=== PATIENT | female | born 1950 | race Caucasian/White ===

== ENCOUNTER 2023-09-23 04:39 | Emergency (ER) | payer MEDICARE, SELFPAY ==
[2023-09-23 05:06] VITALS: BP 119/80
--- NOTE | 2023-09-23 07:44 | ED.GENMED ---
History of Present Illness
General
Chief Complaint: Musculo-Skeletal Complaint
Source: patient
Exam Limitations: none
Time Seen by Provider: 09/23/23 06:42
Nursing documentation reviewed up to this point in time: agreed with
Travel History
Have you had any contact with someone who has COVID-19?: No
Do you have any symptoms of coronavirus? Fever > 100 degrees, chills, cough, shortness of breath, sore throat, loss of taste or smell, muscle aches, or headache?: No
History of Present Illness
History of Present Illness:
Patient presents ED secondary to persistent right foot pain, after she rolled her foot on a ball, while playing with her dog last night. Patient has taken Advil overnight, with minimal relief in symptoms. Denies any other injuries from the
incident.
Review of Systems
Review of Systems
Allergies reviewed?: Yes
All Other Systems: ROS reviewed and negative except as documented in HPI and ROS
Constitutional: Reports no symptoms; Denies fever
Musculoskeletal: Reports other (foot pain)
Skin: Reports no symptoms
Neurological: Reports no symptoms
Phy Exam
Physical Exam
Physical Exam:
Physical Exam
General: mild painful distress, not acutely ill. afebrile
Head: nc/at. eomi
Neck: supple. normal range of motion.
Neuro: alert and oriented. no focal neurological deficits
Skin: no rash
Psychiatric: well kept. interactive and cooperative
Extremities: right foot - mild ecchymosis w tenderness noted over lateral aspect, below and distal to lateral malleolus
Course
Orders/Labs/Results
Orders:
Orders
09/23/23 05:17
Foot, Right 3 View [CR Foot - Right Min 3 Views] Urgent
Comment:
Reason For Exam: twist inj
09/23/23 07:51
boot [Ortho Boot Right- Treatment] ONCE
Short or tall?: Short
Vital Signs
Initial and Last Documented VS:
Initial Vital Signs
Temp Pulse Resp BP Pulse Ox
98.1 F 72 16 119/80 96
09/23/23 05:06 09/23/23 05:06 09/23/23 05:06 09/23/23 05:06 09/23/23 05:06
Last Documented Vital Signs
Temp Pulse Resp BP Pulse Ox
98.1 F 72 16 119/80 96
09/23/23 05:06 09/23/23 05:06 09/23/23 05:06 09/23/23 05:06 09/23/23 05:06
MDM/Problems Addressed
MDM/Problems Addressed:
X-ray: No acute findings, preliminary reading by myself.
History and exam consistent with likely foot strain, less likely fracture. Patient will be placed on short orthopedic boot with recommendation to follow-up with PCP for reevaluation.
*Critical Care Note
Total Time (30-74mins, 75-104mins- exclusive of procedures): Not Applicable
ED Attending Note
-
Portions of this chart may have been created with voice recognition software.� Occasional wrong word or��sound alike� substitutions may have occurred due to the inherent limitations of voice recognition software.
Discharge Plan
Departure
Patient Disposition: Home (Routine Discharge)
Date of Disposition: 09/23/23
Time of Disposition: 07:52
Patient with high blood pressure during this ER visit?: No
Condition: Good
Discharge Problem:
Foot sprain
Instructions: Sprain (DC), Walking Boot
Referrals:
Nithin Garner MD [Active] -
Mary Shaw MD [Family Provider] -
Activity Restrictions/Additional Instructions:
As discussed, please follow-up with your primary care physician and/or referred orthopedic surgeon for reevaluation. In ED, x-ray did not reveal any acute findings. Please continue to use provided orthopedic boot for comfort.
Interventions
Interventions:
*Risk Screen - Suicide Last Done: 09/23/23 05:06
*General Assessment Last Done: 09/23/23 05:06
*Neglect/Abuse Screening Last Done: 09/23/23 05:06
ED- Fall Risk Assessment Last Done: 09/23/23 05:06
*ED COVID-19 Vaccine History Last Done: 09/23/23 05:06
*Nursing Disposition Last Done: 09/23/23 08:09
ED-Musculoskeletal Assessment Last Done: 09/23/23 07:45
Discharge Date and Time
Discharge Date/Time: 09/23/23 08:09
Print Language: ESTONIAN
== END 2023-09-23 08:09 | disposition home or self-care (01) ==
LOC: EMR 04:39
PROVIDERS: EMERGENCY PHYSICIAN Emergency Medicine; FAMILY PHYSICIAN Internal Medicine
DX: S93.601A Unspecified sprain of right foot, initial encounter (principal); X50.1XXA Overexertion from prolonged static or awkward postures, initial encounter
CPT/HCPCS: 99283; 73630

== ENCOUNTER → 2024-07-30 13:22 | Outpatient (REF) | payer MEDICARE, SELFPAY ==
[2024-07-30 14:29] LABS: % Basophils 1.2 % (0-2); % Immature Granulocytes 0.2 % (0-0.5); % Monocytes 11.3 % (1.7-9.3); % Neutrophils 47.3 % (42.2-75.2); Absolute Basophils 0.1 10^3/uL (0-0.2); Absolute Eosinophils 0.2 10^3/uL (0-0.7); Absolute Lymphocytes 1.5 10^3/uL (1.2-3.4); Absolute Monocytes 0.5 10^3/uL (0.1-0.6); Hematocrit 39.4 % (37.0-47.0); Hemoglobin 13.7 g/dL (12.0-16.0); Mean Corp Hgb Conc. 34.8 g/dL (33.0-37.0); Mean Corpuscular Hgb 32.9 pg (27.0-31.0); Mean Corpuscular Volume 94.7 fL (81.0-99.0); Mean Platelet Volume 9.9 fL (7.4-10.4); Nucleated Red Blood Cells % 0 %; Platelet Count 251 10^3/uL (130-400); Red Blood Cell Count 4.16 10^6/uL (4.20-5.40); Red Cell Dist. Width 11.8 % (11.5-14.5); White Blood Cell Count 4.2 10^3/uL (4.8-10.8)
[2024-07-30 14:46] LABS: Blood Urea Nitrogen 18 mg/dl (7-17); Carbon Dioxide 33 mmol/L (22-30); Chloride 94 mmol/L (98-107); Glucose 84 mg/dl (70-99); Potassium 4.4 mmol/L (3.5-5.1); Sodium 130 mmol/L (135-145); eGFR > 60.00
== END ==
LOC: RCS 13:22
PROVIDERS: ATTENDING PHYSICIAN Orthopaedic Surgery; FAMILY PHYSICIAN Internal Medicine
DX: Z01.818 Encounter for other preprocedural examination (principal)
CPT/HCPCS: 36415; 80048; 85025; 93005

== ENCOUNTER 2024-09-18 09:02 | Emergency (ER) | payer MEDICARE, SELFPAY ==
--- NOTE | 2024-09-18 09:21 | ED.GENMED ---
History of Present Illness
General
Chief Complaint: Chest Pain
Source: patient
Exam Limitations: none
Time Seen by Provider: 09/18/24 09:21
History of Present Illness
History of Present Illness:
Patient started with nontraumatic localized left anterior lateral chest pain under her left breast last evening. Persisted throughout the night and into today. Worse with breathing twisting turning coughing. History of costochondritis that feels
similar. She did however have a recent hip replacement. No unusual new leg pain no fever no cough.
Past History
Past History
ED Past Medical History: Asthma, Seizures and Other (Orion's thyroiditis)
ED Past Surgical History: Orthopedic
Review of Systems
Review of Systems
All Other Systems: Not applicable
Constitutional: Denies fever or chills
Respiratory: Denies cough
Cardiac: Denies syncope
ABD/GI: Reports no symptoms
Phy Exam
Physical Exam
Physical Exam:
GENERAL: Alert and oriented in no apparent distress
EYE: Orbits normal.
NECK: Supple, no significant adenopathy.
ENT: Pharynx without erythema
CARDIAC: Regular rate and rhythm without any obvious murmurs. No chest wall tenderness
LUNGS: Clear breath sounds,normal
ABDOMEN: Soft, without focal tenderness or distention
NEUROLOGICAL: Alert and oriented , grossly non-focal
SKIN: Warm and dry, no rash or lesion, no discoloration, skin intact.
MUSCULOSKELETAL: No edema,no deformity.Good color. Mild area of old ecchymosis to the right lower leg
PSYCH: Normal and appropriate interaction.
Scores
Heart Score for Chest Pain Patients
STEMI patient?: No
History: Slightly or Non-Suspicious
ECG: Normal
Age: >/= 65 years
Risk Factors: No Risk Factors
Troponin: </= Normal Limit
Heart Score for Chest Pain Patients: 2
Heart Score Risk: 2.5% MACE over next 6 weeks
Course
Orders/Labs/Results
Orders:
Orders
09/18/24 09:08
Electrocardiogram (*1) Urgent
Reason for Study: Chest Pain
EKG- Treatment ONCE
09/18/24 09:42
CT Chest PE Study Urgent
Comment:
Reason For Exam: Left pleuritic chest pain
Cardiac Monitoring- Treatment ONCE
IV Insert/Care/Rem.- Treatment PRN
0.9% Sodium Chloride 500 ml [Nss] 500 ml IV BOLUS
Pulse Ox/cont/shift [RESP] Stat
Quantity: 1
09/18/24 09:44
Basic Metabolic Panel Urgent
Complete Blood Count/With Diff Urgent
Troponin I Urgent
09/18/24 11:10
Ketorolac [Toradol] 15 mg IV NOW STA
Morphine Sulfate 2 mg IV NOW STA
Abnormal Lab Results
09/18/24
09:44
RBC 3.70 L 10^6/uL
(4.20-5.40)
Hct 35.3 L %
(37.0-47.0)
MCH 32.4 H pg
(27.0-31.0)
Absolute Lymphs (auto) 1.1 L 10^3/uL
(1.2-3.4)
Absolute Monos (auto) 0.7 H 10^3/uL
(0.1-0.6)
Lymphocytes % 20.1 L %
(20.5-51.1)
Monocytes % 12.2 H %
(1.7-9.3)
BUN 22 H mg/dl
(7-17)
09/18/24 09:44
09/18/24 09:44
Vital Signs
Initial and Last Documented VS:
Initial Vital Signs
Temp Pulse Resp Pulse Ox
97.8 F 69 18 96
09/18/24 09:05 09/18/24 09:05 09/18/24 09:05 09/18/24 09:05
Last Documented Vital Signs
Temp Pulse Resp Pulse Ox
97.8 F 74 14 98
09/18/24 09:05 09/18/24 10:00 09/18/24 09:30 09/18/24 09:30
MDM/Problems Addressed
Differential Diagnosis Includes:
Patient describing costochondritis with pleuritic pain but also worse with cough sneezing twisting turning sitting up etc. Clearly very atypical for cardiac. However for completeness a troponin will be done. Consistent symptoms all night. Repeat
troponin would not be necessary. Pulmonary emboli also in the differential given her recent hip surgery. Feel D-dimer would not be an appropriate screen. CT scan pending
*Radiology
Radiology exam reviewed: radiology read reviewed (No acute findings. Some atelectasis.)
*Pulse Oximetry
Patient hypoxic: no
*EKG
Interpreted by ED Provider?: Yes
Interpretation: normal
Comparison EKG: no changes
Heart Rate: 67
Rate: normal
Rhythm: sinus
Slick: normal axis
Interval: normal interval
QRS Pattern: normal QRS
Ischemia: no ischemia
*Critical Care Note
Total Time (30-74mins, 75-104mins- exclusive of procedures): Not Applicable
Update Note
Update Note:
Patient much more comfortable at this time. Had some increased pain after CT I suspect secondary to positioning. Clearly a pleuritic musculoskeletal costochondritis like pain. Very prolonged continuous symptoms with negative cardiac workup. Very
very atypical for cardiac presentation. No pulmonary emboli no dissection. Patient is comfortable at this time. Discharged for follow-up
ED Attending Note
-
Portions of this chart may have been created with voice recognition software.� Occasional wrong word or��sound alike� substitutions may have occurred due to the inherent limitations of voice recognition software.
Discharge Plan
Departure
Patient Disposition: Home (Routine Discharge)
Date of Disposition: 09/18/24
Time of Disposition: 12:14
Patient with high blood pressure during this ER visit?: Yes
Discharge Problem:
Costochondritis/pleuritic chest pain
Instructions: Costochondritis (DC), Pleuritic Chest Pain ED, BLOOD PRESSURE
Referrals:
NONE,* [Family Provider] -
Activity Restrictions/Additional Instructions:
Get rechecked with progression of pain fever shortness of breath or symptoms or not improving in 2 to 3 days
Interventions
Interventions:
*Risk Screen - Suicide Last Done: 09/18/24 09:06
*General Assessment Last Done: 09/18/24 09:28
*Neglect/Abuse Screening Last Done: 09/18/24 09:06
*ED- Fall Risk Assessment Last Done: 09/18/24 09:28
*ED COVID-19 Vaccine History Last Done: 09/18/24 09:28
ED- Cardiac Assessment Last Done: 09/18/24 09:38
Discharge Date and Time
Print Language: SETSWA[place]
[2024-09-18 09:26] VITALS: BMI 21.3
[2024-09-18 09:41] VITALS: BP 117/66
[2024-09-18] MEDS: NSS 500 IV (09:47)
[2024-09-18 09:57] LABS: % Basophils 1.3 % (0-2); % Eosinophils 4.9 % (0-6); % Immature Granulocytes 0.2 % (0-0.5); % Lymphocytes 20.1 % (20.5-51.1); % Monocytes 12.2 % (1.7-9.3); % Neutrophils 61.3 % (42.2-75.2); Absolute Basophils 0.1 10^3/uL (0-0.2); Absolute Eosinophils 0.3 10^3/uL (0-0.7); Absolute Lymphocytes 1.1 10^3/uL (1.2-3.4); Absolute Monocytes 0.7 10^3/uL (0.1-0.6); Absolute Neutrophils 3.3 10^3/uL (1.4-6.5); Hematocrit 35.3 % (37.0-47.0); Mean Corpuscular Hgb 32.4 pg (27.0-31.0); Mean Corpuscular Volume 95.4 fL (81.0-99.0); Nucleated Red Blood Cells % 0 %; Platelet Count 345 10^3/uL (130-400); Red Cell Dist. Width 12.6 % (11.5-14.5); White Blood Cell Count 5.3 10^3/uL (4.8-10.8)
[2024-09-18 10:00] VITALS: BP 105/70
[2024-09-18 10:04] LABS: Blood Urea Nitrogen 22 mg/dl (7-17); Calcium 9.9 mg/dl (8.4-10.2); Carbon Dioxide 29 mmol/L (22-30); Chloride 100 mmol/L (98-107); Estimated Creatinine Clearance 49 ml/min; Glucose 88 mg/dl (70-99); Potassium 4.5 mmol/L (3.5-5.1); Sodium 135 mmol/L (135-145); eGFR > 60.00
[2024-09-18 10:15] LABS: Troponin I < 0.012 ng/ml
[2024-09-18] MEDS: MORPHINE SULFATE 2 MG IV (11:20)
[2024-09-18] MEDS: TORADOL 15 MG IV (11:21)
[2024-09-18 11:24] VITALS: BP 132/84
[2024-09-18 12:00] VITALS: BP 108/73
[2024-09-18 12:43] VITALS: BP 108/73
== END 2024-09-18 12:44 | disposition home or self-care (01) ==
LOC: EMR 09:02
PROVIDERS: EMERGENCY PHYSICIAN Emergency Medicine
DX: M94.0 Chondrocostal junction syndrome [Tietze] (principal); R07.81 Pleurodynia; R03.0 Elevated blood-pressure reading, without diagnosis of hypertension
CPT/HCPCS: 99285; 71275; 80048; 84484; 85025; 93005; Q9967